=== PATIENT | male | born 1955 | race Caucasian/White ===

== ENCOUNTER → 2023-04-07 07:40 | Outpatient (CLI) | payer MEDICARE, SELFPAY ==
[2023-04-07 08:32] LABS: Influenza A - CEPHEID Flu A NEGATIVE (NEGATIVE); Influenza B - CEPHEID Flu B NEGATIVE (NEGATIVE); Respiratory Syncytial Virus Negative (Negative)
[2023-04-07 09:42] LABS: COVID-19 CEPHEID 4-PLEX PCR Negative (Negative)
== END ==
PROVIDERS: PCP Family Medicine; Visit Provider Nurse Practitioner Family
DX: J06.9 Acute upper respiratory infection, unspecified (principal)
CPT/HCPCS: 0241U

== ENCOUNTER → 2023-06-03 12:28 | Outpatient (CLI) | payer MEDICARE, SELFPAY ==
[2023-06-03 12:52] LABS: Add Manual Diff / Slide Review NO; Basophils Absolute Auto 0 /uL (0-100); Basophils Percent Auto 0.3 % (0-2); Eosinophils Absolute Auto 200 /uL (0-450); Eosinophils Percent Auto 1.9 % (2-4); Hematocrit 40.6 % (41-53); Hemoglobin 13.7 g/dL (13.5-17.5); Lymphocytes Absolute Auto 1300 /uL (1100-4500); Lymphocytes Percent Auto 14.8 % (25-40); Mean Corpuscular HGB Conc 33.8 % (30-36); Mean Corpuscular Volume 88.9 fL (80-100); Monocytes Absolute Auto 600 /uL (0-900); Monocytes Percent Auto 7.2 % (3-14); Neutrophils Absolute Auto 6800 /uL (1500-7000); Neutrophils Percent Auto 75.8 % (50-75); Platelet Count 337 X10^3/uL (150-400); Red Blood Cell Count 4.56 X10^6/uL (4.5-5.9); Red Cell Distribution Width 14.3 % (11.6-14.8); White Blood Cell Count 8.9 X10^3/uL (4.5-11.0)
[2023-06-03 17:42] LABS: Alanine Aminotransferase 18 IU/L (<50); Albumin 3.8 g/dL (3.5-5.0); Albumin Globulin Ratio 1.4 (1.0-2.8); Alkaline Phosphatase 86 U/L (38-126); Aspartate Aminotransferase 17 IU/L (17-59); BUN Creatinine Ratio 11.5 (6-22); Bilirubin Total 0.8 mg/dL (0.2-1.3); Blood Urea Nitrogen 10 mg/dL (9-20); Calcium 9.8 mg/dL (8.4-10.2); Carbon Dioxide 24 mmol/L (22-32); Chloride 107 mmol/L (98-107); Cholesterol 115 mg/dL (140-199); Estimated Glomerular Filt Rate > 60 mL/min (>60); Globulin 2.8 g/dL (1.7-4.1); Glucose 125 mg/dL (80-110); HDL Cholesterol 44 mg/dL (40-60); HEMOLYSIS < 15 (0-50); LDL Cholesterol Calculated 58 mg/dL (<100); Potassium 3.6 mmol/L (3.4-5.1); Sodium 140 mmol/L (137-145); Total Protein 6.6 g/dL (6.3-8.2); Triglycerides 63 mg/dL (35-150)
== END ==
PROVIDERS: PCP Family Medicine; Referring Provider Family Medicine; Visit Provider Family Medicine
DX: E78.5 Hyperlipidemia, unspecified (principal); I10 Essential (primary) hypertension; I48.0 Paroxysmal atrial fibrillation
CPT/HCPCS: 36415; 80053; 80061; 85025

== ENCOUNTER → 2024-02-01 13:46 | Outpatient (CLI) | payer MEDICARE, SELFPAY ==
[2024-02-01 14:25] LABS: Add Manual Diff / Slide Review NO; Basophils Absolute Auto 100 /uL (0-100); Eosinophils Absolute Auto 200 /uL (0-450); Eosinophils Percent Auto 2.1 % (2-4); Hematocrit 42.1 % (41-53); Hemoglobin 14.3 g/dL (13.5-17.5); Lymphocytes Absolute Auto 1200 /uL (1100-4500); Lymphocytes Percent Auto 12.5 % (25-40); Mean Corpuscular HGB Conc 33.9 % (30-36); Mean Corpuscular Hemoglobin 30.8 PG (26-34); Monocytes Absolute Auto 1100 /uL (0-900); Neutrophils Absolute Auto 7200 /uL (1500-7000); Neutrophils Percent Auto 73.4 % (50-75); Platelet Count 272 X10^3/uL (150-400); Red Blood Cell Count 4.63 X10^6/uL (4.5-5.9); White Blood Cell Count 9.8 X10^3/uL (4.5-11.0)
[2024-02-01 14:50] LABS: Alanine Aminotransferase 20 IU/L (<50); Albumin 4.2 g/dL (3.5-5.0); Albumin Globulin Ratio 1.6 (1.0-2.8); Alkaline Phosphatase 90 U/L (38-126); Aspartate Aminotransferase 22 IU/L (17-59); BUN Creatinine Ratio 15.3 (6-22); Bilirubin Total 0.9 mg/dL (0.2-1.3); Blood Urea Nitrogen 15 mg/dL (9-20); Calcium 9.6 mg/dL (8.4-10.2); Carbon Dioxide 29 mmol/L (22-32); Chloride 107 mmol/L (98-107); Estimated Glomerular Filt Rate > 60 mL/min (>60); Globulin 2.7 g/dL (1.7-4.1); Glucose 83 mg/dL (80-110); HEMOLYSIS < 15 (0-50); Potassium 3.9 mmol/L (3.4-5.1); Sodium 140 mmol/L (137-145); Total Protein 6.9 g/dL (6.3-8.2)
[2024-02-01 14:56] LABS: NT-proBNP (BNP-Adult 18+) 671 pg/mL (<125)
[2024-02-01 15:17] LABS: TSH w/ Reflex to FT4 1.47 uIU/mL (0.47-4.68)
[2024-02-01 15:37] LABS: Vitamin B12 219 pg/mL (239-931)
== END ==
PROVIDERS: PCP Family Medicine; Referring Provider Family Medicine; Visit Provider Family Medicine
DX: I48.91 Unspecified atrial fibrillation (principal); R60.0 Localized edema; R41.3 Other amnesia
CPT/HCPCS: 36415; 80053; 82607; 83880; 84443; 85025; 86803

== ENCOUNTER → 2024-03-06 06:55 | Outpatient (CLI) | payer MEDICARE, SELFPAY ==
--- NOTE | 2024-03-06 06:56 | DI.ECHO.S_ITS ---
[place] +---------+ [facility] : : [address] : : [place] : : [id number] : : Phone: [phone] Echocardiogram Report + + :Name: JAKE AZEVEDO Study Date: 03/06/2024 Height: 69 in : :[facility] ReadingLocation: Weight: 230 lb : : Gender: Male BSA: 2.2 m2 : :: 1955 Age: 68 yrs BP: 165/105 mmHg: :Reason For Study: ATRIAL FIBRILLATION : :Ordering Physician: KAMLA, : :GUCCI Performed By: Krystin Sun : :Referring: GUCCI CASON : + + Interpretation Summary 1) Normal left ventricular thickness and size with moderately to severely reduced systolic function (EF 30-35%). 2) Upper normal right ventricular size with mildly reduced function. 3) There is mild mitral regurgitation. 4) The aortic root is moderately dilated at 4.6cm. 5) Hypertension present during the study (BP 165/105mmHg). 6) No prior Echo available for comparison. Recommend cardiology consult. Procedure: A two-dimensional transthoracic echocardiogram with color flow and Doppler was performed. The study quality was technically adequate. There is no prior echocardiogram noted for this patient. The patient had occasional PVCs during the exam. The patient was in atrial fibrillation with heart rates between 73-92 bpm during the exam. Left Ventricle: The left ventricle is normal in size. Left ventricular wall thickness is mildly increased. The ejection fraction is estimated to be 30- 35%. Diastolic function could not be accurately assessed due to atrial fibrillation. Right Ventricle: The right ventricle is at the upper limits of normal in size. Right ventricular systolic function is mildly reduced. Atria: The left atrium is moderately dilated. Right atrial size is normal. There is no Doppler evidence for an interatrial shunt. Mitral Valve: The mitral valve is normal in structure and function. There is mild mitral regurgitation. Aortic Valve: The aortic valve is trileaflet. The aortic valve opens well. The aortic valve is slightly calcified. There is no aortic valve stenosis. No aortic regurgitation is present. Tricuspid Valve: The tricuspid valve is normal in structure and function. Pulmonary artery pressures cannot be estimated because of the lack of a measurable TR jet velocity. Pulmonic Valve: The pulmonic valve leaflets are thin and pliable; valve motion is normal. There is trace pulmonic regurgitation. Great Vessels: The aortic root is moderately dilated. The dimensions of the ascending aorta are normal. The IVC is of normal diameter and collapses greater than 50% with a sniff. This suggests a low right atrial pressure of 3 mm Hg. Pericardium/ Pleura There is no pericardial effusion. There is no pleural effusion. MMode/2D Measurements & Calculations LVIDd: 5.7 cm LVOT diam: 2.1 cm LVIDs: 4.8 cm Ao root diam: 4.6 cm FS: 16.8 % asc Aorta Diam: 3.6 cm EPSS: 1.5 cm Ao Arch Diam (Prox Trans): 3.7 cm IVSd: 1.0 cm LVPWd: 1.2 cm LV kowalski. diameter/BSA (cm/m^2): 2.6 LV sys. diameter/BSA (cm/m^2): 2.2 LA A2 area: 29.2 cm2 RA long axis: 6.7 cm LA A4 area: 29.8 cm2 RA area: 18.7 cm2 LA length (vol): 6.8 cm RA vol: 44.3 ml LA vol: 108.3 ml RA : 20.2 ml/m2 LA vol index: 49.4 ml/m2 IVC diam: 1.4 cm RVD1 (basal): 4.1 cm RVD2 (mid): 3.1 cm TAPSE: 1.6 cm Doppler Measurements & Calculations Ao V2 max: 102.9 cm/sec LVOT Max Shaw: 80.3 cm/sec Ao V2 mean: 76.7 cm/sec LV V1 max P.6 mmHg Ao max P.2 mmHg LV V1 VTI: 15.4 cm Ao mean P.5 mmHg STEFANIA(I,D): 2.7 cm2 Ao V2 VTI: 20.3 cm STEFANIA(V,D): 2.8 cm2 sev ratio: 0.76 STEFANIA indexed to BSA (cm^2/m^2): 1.2 MV E max shaw: 101.9 cm/sec PA V2 max: 79.8 cm/sec MV A max shaw: 0.79 cm/sec PA V2 mean: 53.5 cm/sec MV E/A: 129.0 PA mean P.3 mmHg Med Peak E' Shaw: 8.3 cm/sec E/E' med: 12.3 Lat Peak E' Shaw: 11.3 cm/sec E/E' lat: 9.0 E/e' average: 10.7 MV dec time: 0.19 sec SV(LVOT): 54.2 ml Reading Physician:09:54 AM
== END ==
LOC: ECHO 06:56
PROVIDERS: PCP Family Medicine; Referring Provider Family Medicine; Visit Provider Family Medicine
DX: I34.0 Nonrheumatic mitral (valve) insufficiency (principal); I77.810 Thoracic aortic ectasia; I48.91 Unspecified atrial fibrillation; R60.0 Localized edema
CPT/HCPCS: 93306

== ENCOUNTER 2024-04-24 11:53 | Day surgery (SDC) | payer MEDICARE, SELFPAY ==
[2024-04-24 12:15] VITALS: BP 172/87; PULSE 83; RESP 16; TEMP 36.7; O2SAT 98
[2024-04-24] MEDS: LACTATED RINGERS 1,000 ML 42 ML IV (12:23)
--- NOTE | 2024-04-24 12:33 | P.HP_ITS ---
History of Present Illness History of Present Illness Date Patient Seen: 04/24/24 Time Patient Seen: 12:33 Chief complaint: Colonoscopy Narrative: 68-year-old man here for screening colonoscopy. Last colonoscopy over 5 years ago normal. No family history of colon cancer. No abdominal concerns today. [facility] Medical History (Updated 06/07/23 @ 13:39 by Karime Silva DO) Encounter for initial annual wellness visit (AWV) in Medicare patient Vision disorder Tinnitus Hearing loss Atrial fibrillation (~2019) Prostate cancer (~2013) Sleep apnea Depression Hyperlipemia Benign essential HTN Paroxysmal atrial fibrillation Family History (Updated 05/10/23 @ 20:42 by Bee Alvarado) Mother Pneumonia Cancer Social History Smoking Status: Never smoker alcohol intake: current Meds Home Medications and Allergies Home Medications Medication Instructions Recorded Confirmed Type apixaban 5 mg tablet (Eliquis) 5 mg PO BID #180 tabs 06/07/23 04/24/24 Rx citalopram 20 mg tablet (Celexa) 20 mg PO DAILY #90 tabs 06/07/23 04/24/24 Rx rosuvastatin 10 mg tablet 10 mg PO DAILY #90 tabs 06/07/23 04/24/24 Rx valsartan 320 mg tablet 320 mg PO DAILY #30 tabs 07/13/23 04/24/24 Rx atropine 1 % eye drops 1 drp EYE-BOTH Q OTHER DAY 02/01/24 04/24/24 History diltiazem HCl 180 mg 180 mg PO DAILY #90 tabs 02/01/24 04/24/24 Rx tablet,extended release 24 hr ketorolac 0.4 % eye drops 1 drp EYE-BOTH Q4H 02/01/24 04/24/24 History prednisolone acetate 1 % eye 1 drp EYE-BOTH Q2H 02/01/24 04/24/24 History drops,suspension cyanocobalamin (vitamin B-12) 1,000 mcg PO DAILY #90 tabs 02/02/24 04/24/24 Rx 1,000 mcg tablet folic acid 1 mg tablet 1 mg PO DAILY #90 tabs 02/02/24 04/24/24 Rx Allergies Allergy/AdvReac Type Severity Reaction Status Date / Time No Known Drug Allergies Allergy Verified 04/24/24 12:08 Exam Vital Signs (past 8 hours): - 04/24/24 12:15 Temperature 98.0 F Pulse Rate 83 Respiratory Rate 16 Blood Pressure 172/87 H Pulse Oximetry 98 Oxygen Delivery Method Room Air Oxygen Delivery Method Room Air Narrative Exam Narrative: General adult man alert oriented no acute distress Chest nonlabored respiration Extremities warm well perfused Assessment & Plan Assessment & Plan narrative: The patient requires colorectal screening and colonoscopy is recommended. Technical details were discussed. Risks, benefits, alternatives explained. Risks including but not limited to myocardial infarction, aspiration, bleeding, pain, missed lesion, incomplete examination, need for further radiographic studies, intestinal injury, and need for major abdominal surgery were discussed. All questions were answered to their satisfaction, and they are in agreement with this plan. Time-Based Coding :: [TOTAL MINUTES] spent with patient and on the chart (including review of chart, obtaining history, exam, reviewing outside data, placing orders, documenting exam and treatment plan, and counseling patient) on [DATE].
[2024-04-24 13:00] VITALS: BP 140/78; PULSE 70; RESP 21; TEMP 37.2; O2SAT 97
--- NOTE | 2024-04-24 13:05 | P.OP.COLON_ITS ---
Operative Date/Time/Diagnoses Date of procedure: 04/24/24 Time of procedure: 13:05 Pre-op diagnosis: Colorectal screening Procedure & Clinicians Study performed: Screening colonoscopy Same procedure as scheduled: Yes Indications: Colorectal screening Surgeon: Cody Buck Procedure Notes Procedure in detail: The history and physical was performed/updated and the patient is ASA class is 2. The procedure was discussed in detail with the patient. Potential risks co mplications including infection, bleeding, missed diagnosis, perforation, need for surgery, and were explained. Their questions were answered and informed consent was obtained. Patient was brought to the procedure room and placed standard monitoring equipment. The patient's vital signs were monitored continuously throughout the entire procedure. Prior to starting time-out was performed. The patient was placed in the left lateral recumbent position. Procedural sedation was administered by anesthesia. Examination began with a thorough inspection of the perianal area there was no evidence of fissures, fistulae, external hemorrhoids or cutaneous malignancy. The colonoscopy scope was then placed into the anal canal and was advanced to the cecum, which was identified by the ileocecal valve, the appendiceal orifice and the confluence of the taenia. The scope was then slowly withdrawn examining colon thoroughly in all directions, irrigating it of any residual stool. The scope was retroflexed within the rectum The patient tolerated the procedure well. They will be discharged once criteria are met. The prep was of good/excellent quality. The withdrawl time was 7 minutes. FINDINGS * Diverticulosis of descending colon * Colonic mucosa without mass or polyps. Specimen(s): none sent Impression: Diverticulosis Post-procedure Recommendations: High fiber diet Plan for aftercare: No need further colonoscopy unless symptomatic Disposition: same day surgery
[2024-04-24 13:06] VITALS: BP 145/79; PULSE 88; RESP 16; TEMP 37.2; O2SAT 95
[2024-04-24 13:19] VITALS: BP 132/76; PULSE 71; RESP 18; TEMP 37; O2SAT 98
== END 2024-04-24 13:24 | disposition home or self-care (01) ==
PROVIDERS: PCP Family Medicine; Referring Provider Surgery; Visit Provider Surgery
PROC: 0DJD8ZZ Inspection of Lower Intestinal Tract, Via Natural or Artificial Opening Endoscopic (ICD-10-PCS; CPT 45378; principal; 2024-04-24 12:45)
DX: Z12.11 Encounter for screening for malignant neoplasm of colon (principal); K57.30 Diverticulosis of large intestine without perforation or abscess without bleeding
CPT/HCPCS: G0121; J2704

== ENCOUNTER → 2024-07-09 10:23 | Outpatient (CLI) | payer MEDICARE, SELFPAY ==
--- NOTE | 2024-07-09 10:24 | DI.CT.S_ITS ---
PROCEDURE: CT CHEST WO CON INDICATIONS: ANEURYSM TECHNIQUE: Noncontrast 5 mm thick sections acquired from the pulmonary apices to the posterior costophrenic angles. 1 mm lung window, 5 mm thick coronal and sagittal and 7 mm axial MIP reformats were then acquired. For radiation dose reduction, the following was used: automated exposure control, adjustment of mA and/or kV according to patient size. COMPARISON: None. FINDINGS: Image quality: Diagnostic. Lower Neck: No enlarged lymph nodes. Thyroid: No thyroid nodules which require sonographic follow up, per consensus guidelines. Axillae: No enlarged lymph nodes. Chest Wall: Unremarkable. Bones: Multilevel degenerative changes of the spine. Lungs and Pleura: No pneumothorax or pleural effusions. Linear atelectasis versus scarring within the left lower lobe and lingula. Perifissural triangular nodules are noted on the left, likely intrapulmonary lymph nodes. Heart: Heart size is prominent. Mild coronary artery calcifications. No pericardial effusion. Thoracic Vessels: The aorta and pulmonary arteries demonstrate normal size. The ascending thoracic aorta measures 3.7 cm. Atherosclerotic vascular calcifications are present. Mediastinum and Malina: No enlarged lymph nodes. Esophagus: No wall thickening. No hiatal hernia. Upper Abdomen: Visualized upper abdomen solid organs and bowel loops appear normal. IMPRESSION: The ascending thoracic aorta is normal in caliber measuring 3.7 cm. Dictated by: Aron Ordoñez M.D. on 07/09/2024 at 15:21 Approved by: Aron Ordoñez M.D. on 07/09/2024 at 15:26
--- NOTE | 2024-07-09 21:46 | DI.NM.S_ITS ---
DATE OF SERVICE: 07/09/2024 EXERCISE TREADMILL STRESS TEST PROCEDURE: Exercise treadmill stress test without imaging. ORDERING PROVIDER: Sudarshan Chavez MD INDICATIONS: The patient is a 69-year-old hypertensive male with paroxysmal atrial fibrillation and cardiomyopathy. FINDINGS: 1. The patient was able to exercise for 5 minutes 34 seconds on a standard William protocol suggesting moderately reduced exercise capacity with an FEDE of +19%, achieving 7.0 METS. 2. He had an accelerated heart rate response to exercise with his resting ECG showing atrial fibrillation at 109 BPM, increasing to 146 BPM after 1 minute of exercise and achieving a maximum heart rate of 195 BPM at peak exercise (129% of his predicted maximum heart rate). He had a moderate hypertensive blood pressure response with a resting blood pressure of 160/100, increasing to a maximum of 240/118 at peak exercise. 3. He had no chest discomfort or anginal symptoms except for moderate exertional dyspnea and weakness. 4. His resting ECG shows atrial fibrillation with fairly normal ST segments. With exercise, there is significant motion artifact but his immediate recovery ECG shows no significant ST-segment shifts and only rare, isolated PVCs, although he remained in atrial fibrillation throughout the study. IMPRESSION: 1. Normal exercise treadmill stress test for ischemia. 2. Moderately reduced exercise capacity, likely due to an accelerated heart rate response to exercise with a resting heart rate of 109 BPM increasing to a maximum of 195 BPM in persistent atrial fibrillation. He also had a hypertensive blood pressure response but no anginal symptoms. He had rare PVCs, but no complex ectopy. Ruslan Arreguin - RS/fn/AY doc#: [id number]/job#: [id number] dd: 07/09/2024 17:21:00 dt: 07/09/2024 21:20:00 DICTATING MD/COPIES TO: Riccardo Camacho MD; Sudarshan Chavez MD COPIES MNE: MARIA G;
== END ==
PROVIDERS: PCP Family Medicine; Referring Provider Internal Medicine; Visit Provider Internal Medicine
DX: I50.22 Chronic systolic (congestive) heart failure (principal); I11.0 Hypertensive heart disease with heart failure; I72.9 Aneurysm of unspecified site; I25.10 Atherosclerotic heart disease of native coronary artery without angina pectoris; I48.0 Paroxysmal atrial fibrillation; I42.9 Cardiomyopathy, unspecified
CPT/HCPCS: 71250; 93017

== ENCOUNTER → 2024-07-24 13:01 | Outpatient (CLI) | payer MEDICARE, SELFPAY ==
[2024-07-24 13:36] LABS: Add Manual Diff / Slide Review NO; Basophils Absolute Auto 100 /uL (0-100); Basophils Percent Auto 1.4 % (0-2); Eosinophils Absolute Auto 200 /uL (0-450); Eosinophils Percent Auto 1.9 % (2-4); Hematocrit 47.6 % (41-53); Hemoglobin 15.9 g/dL (13.5-17.5); Lymphocytes Absolute Auto 1400 /uL (1100-4500); Lymphocytes Percent Auto 15.6 % (25-40); Mean Corpuscular HGB Conc 33.5 % (30-36); Mean Corpuscular Hemoglobin 31.1 PG (26-34); Mean Corpuscular Volume 93.1 fL (80-100); Monocytes Absolute Auto 800 /uL (0-900); Monocytes Percent Auto 8.8 % (3-14); Neutrophils Absolute Auto 6300 /uL (1500-7000); Neutrophils Percent Auto 72.3 % (50-75); Platelet Count 275 X10^3/uL (150-400); Red Blood Cell Count 5.11 X10^6/uL (4.5-5.9); Red Cell Distribution Width 14.3 % (11.6-14.8); White Blood Cell Count 8.7 X10^3/uL (4.5-11.0)
[2024-07-24 14:07] LABS: Alanine Aminotransferase 23 IU/L (<50); Albumin 4.3 g/dL (3.5-5.0); Albumin Globulin Ratio 1.4 (1.0-2.8); Alkaline Phosphatase 72 U/L (38-126); Aspartate Aminotransferase 26 IU/L (17-59); BUN Creatinine Ratio 12.6 (6-22); Bilirubin Total 1.2 mg/dL (0.2-1.3); Blood Urea Nitrogen 14 mg/dL (9-20); Calcium 9.6 mg/dL (8.4-10.2); Carbon Dioxide 27 mmol/L (22-32); Chloride 106 mmol/L (98-107); Cholesterol 126 mg/dL (140-199); Estimated Glomerular Filt Rate > 60 mL/min (>60); Glucose 87 mg/dL (80-110); HDL Cholesterol 47 mg/dL (40-60); HEMOLYSIS < 15 (0-50); LDL Cholesterol Calculated 59 mg/dL (<100); Magnesium 2.1 mg/dL (1.6-2.3); Potassium 3.7 mmol/L (3.4-5.1); Sodium 141 mmol/L (137-145); Total Protein 7.3 g/dL (6.3-8.2); Triglycerides 101 mg/dL (35-150)
[2024-07-24 14:33] LABS: TSH w/ Reflex to FT4 1.14 uIU/mL (0.47-4.68)
[2024-07-24 14:34] LABS: Prostate Specific Antigen 0.316 ng/mL (0.10-4.00)
== END ==
PROVIDERS: PCP Family Medicine; Referring Provider Physician Assistant; Visit Provider Physician Assistant
DX: I11.0 Hypertensive heart disease with heart failure (principal); I48.0 Paroxysmal atrial fibrillation; I50.22 Chronic systolic (congestive) heart failure; Z85.46 Personal history of malignant neoplasm of prostate
CPT/HCPCS: 36415; 80053; 80061; 83735; 84153; 84443; 85025

== ENCOUNTER → 2024-08-29 07:00 | Outpatient (CLI) | payer MEDICARE, SELFPAY ==
--- NOTE | 2024-08-29 07:00 | DI.ECHO.S_ITS ---
[place] +---------+ Hospital : : [address] : : [place] : : [id number] : : Phone: [phone] Echocardiogram Report + + :Name: JAKE AZEVEDO Study Date: 08/29/2024 Height: 69 in : :[facility] ReadingLocation: Weight: 230 lb : : Gender: Male BSA: 2.2 m2 : :: 1955 Age: 69 yrs BP: 146/83 mmHg: :Reason For Study: CHRONIC SYSTOLIC HEART FAILURE : :Ordering Physician: MARLENI, : :KAI Knapp Performed By: Krystin Sun : :Referring: KAI YEPEZ P.A-C : + + Interpretation Summary 1. The left ventricular contractility is mildly compromised. Estimate ejection fraction is 40 to 45% with mild global hypokinesis. No LVH. Unable to comment on diastolic function. 2. The right ventricle contractility is mildly compromised. 3. Mild biatrial enlargement. Mild right ventricular enlargement. Left ventricular cavity is of normal size. 4. No significant valvular abnormalities. 5. No obvious intracardiac shunts. 6. No obvious intracardiac masses nor thrombi. 7. No hemodynamically significant pericardial effusion. 8. Low right-sided filling pressures. 9. Mildly dilated aortic root without obvious dissection. Conclusion: Mildly compromised biventricular systolic function with no significant valvular abnormalities. When compared with previous echocardiogram, there appears to be an improvement in the left ventricular systolic function. Procedure: A two-dimensional transthoracic echocardiogram with color flow and Doppler was performed. The study quality was technically adequate. Comparison is made with the echocardiogram of 03/06/2024. The patient was in atrial fibrillation with heart rates between 55-75 bpm during the exam. Left Ventricle: The left ventricle is normal in size and wall thickness. The ejection fraction is estimated to be 40-45%. Diastolic function could not be accurately assessed due to atrial fibrillation. Right Ventricle: The right ventricle is mildly dilated. Right ventricular systolic function is mildly reduced. Atria: The left atrium is mildly dilated. The right atrium is mildly dilated. There is no Doppler evidence for an interatrial shunt. Mitral Valve: The mitral valve leaflets appear borderline thickened, but open well. The mitral valve leaflets appear to open well. There is no mitral valve stenosis. There is no mitral regurgitation noted. Aortic Valve: The aortic valve is trileaflet. The aortic valve opens well. The aortic valve is slightly calcified. There is no aortic valve stenosis. There is trace aortic regurgitation. Tricuspid Valve: The tricuspid valve leaflets are thin and pliable. No tricuspid regurgitation. Pulmonary artery pressures cannot be estimated because of the lack of a measurable TR jet velocity. Pulmonic Valve: The pulmonic valve leaflets are thin and pliable; valve motion is normal. There is a trace or physiologic amount of pulmonic regurgitation. Great Vessels: The aortic root is mildly dilated. The dimensions of the ascending aorta are normal. The IVC is of normal diameter and collapses greater than 50% with a sniff. This suggests a low right atrial pressure of 3 mm Hg. Pericardium/ Pleura There is no pericardial effusion. There is no pleural effusion. MMode/2D Measurements & Calculations LVIDd: 5.5 cm LVOT diam: 2.5 cm LVIDs: 4.0 cm Ao root diam: 4.4 cm FS: 28.2 % Aortic Jxn: 3.3 cm EPSS: 1.5 cm asc Aorta Diam: 3.5 cm IVSd: 0.86 cm LVPWd: 0.99 cm LV kowalski. diameter/BSA (cm/m^2): 2.5 LV sys. diameter/BSA (cm/m^2): 1.8 LA A2 area: 25.3 cm2 RA long axis: 6.5 cm LA A4 area: 27.2 cm2 RA area: 25.5 cm2 LA length (vol): 6.7 cm RA vol: 85.5 ml LA vol: 86.8 ml RA : 39.0 ml/m2 LA vol index: 39.6 ml/m2 IVC diam: 0.76 cm RVD1 (basal): 4.5 cm RVD2 (mid): 3.5 cm TAPSE: 1.6 cm Doppler Measurements & Calculations Ao V2 max: 100.1 cm/sec LVOT Max Shaw: 65.9 cm/sec Ao V2 mean: 77.8 cm/sec LV V1 max P.7 mmHg Ao max P.0 mmHg LV V1 VTI: 12.3 cm Ao mean P.5 mmHg STEFANIA(I,D): 2.8 cm2 Ao V2 VTI: 20.6 cm STEFANIA(V,D): 3.1 cm2 sev ratio: 0.59 STEFANIA indexed to BSA (cm^2/m^2): 1.3 MV E max shaw: 87.9 cm/sec PA V2 max: 88.7 cm/sec MV A max shaw: 2.5 cm/sec PA V2 mean: 63.5 cm/sec MV E/A: 35.7 PA mean P.8 mmHg Med Peak E' Shaw: 8.1 cm/sec PA pr(Accel): 34.5 mmHg E/E' med: 10.9 Lat Peak E' Shaw: 10.9 cm/sec E/E' lat: 8.1 E/e' average: 9.5 MV dec time: 0.20 sec MVA(VTI): 2.3 cm2 MV V2 mean: 65.6 cm/sec SV(LVOT): 58.4 ml MV mean P.0 mmHg MV V2 VTI: 25.8 cm Reading Physician:
== END ==
LOC: ECHO 07:00
PROVIDERS: PCP Family Medicine; Referring Provider Physician Assistant; Visit Provider Physician Assistant
DX: I50.22 Chronic systolic (congestive) heart failure (principal); I77.810 Thoracic aortic ectasia
CPT/HCPCS: 93306

== ENCOUNTER → 2025-04-06 09:18 | Outpatient (CLI) | payer MEDICARE, SELFPAY ==
--- NOTE | 2025-04-06 09:19 | DI.MRI.S_ITS ---
PROCEDURE: MR LUMBAR SPINE WO CON INDICATIONS: LBP with Lt radiculopathy TECHNIQUE: Noncontrast sagittal T1 spin echo and T2 fast echo, sagittal STIR, and T2 fast spin echo through the lumbar spine. In cases with scoliosis, additional coronal T2 fast spin echo may be performed. COMPARISON: None. FINDINGS: Image quality: Excellent. Alignment and Curvature: There is mild to moderate dextroscoliosis. No significant spondylolisthesis. Bone Marrow: Marrow is of normal overall signal. No acute vertebral body compression fractures. Multilevel Modic type 2 reactive endplate changes. Spinal Cord: Conus medullaris terminates at the T12 level. Visualized cord demonstrates normal signal and size. Paraspinous Soft Tissues: No paravertebral masses. T12-L1: There is a mild disc bulge without spinal stenosis. L1-L2: There is mild disc bulge as well as bilateral facet arthropathy. No significant spinal stenosis. L2-L3: There is a disc bulge as well as bilateral facet arthropathy, with facet joint effusion on the right. There is also some ligamentum flavum thickening. There is mild to moderate right lateral recess stenosis and mild right foraminal stenosis. L3-L4: There is disc bulge as well as bilateral facet arthropathy and ligamentum flavum thickening. There is superimposed mild central spinal stenosis as well as moderate left lateral recess and mild left foraminal stenosis. L4-L5: There is a disc bulge as well as bilateral facet arthropathy, with facet joint effusion. There spinal stenosis as well as mild to moderate bilateral foraminal stenosis and moderate right lateral recess stenosis. L5-S1: Mild disc bulge as well as bilateral facet arthropathy. No significant spinal stenosis seen. IMPRESSION: 1. Dextroscoliosis and multilevel degenerative change. There is mild central spinal stenosis at L3-L4 as well as multilevel bilateral lateral stenosis as above. 2. No definite disc extrusion or acute focal osseous lesions. Dictated by: Ronnie Maya M.D. on 04/06/2025 at 20:46 Approved by: Ronnie Maya M.D. on 04/06/2025 at 20:55
== END ==
LOC: MRI 09:19
PROVIDERS: PCP Family Medicine; Referring Provider Family Medicine; Visit Provider Family Medicine
DX: M47.26 Other spondylosis with radiculopathy, lumbar region (principal); M47.27 Other spondylosis with radiculopathy, lumbosacral region; M41.9 Scoliosis, unspecified; M48.061 Spinal stenosis, lumbar region without neurogenic claudication
CPT/HCPCS: 72148; A9579

== ENCOUNTER → 2025-06-06 14:12 | Outpatient (CLI) | payer MEDICARE, SELFPAY ==
--- NOTE | 2025-06-06 14:14 | DI.RAD.S_ITS ---
PROCEDURE: XR LUMBAR SPINE MIN 4V INDICATIONS: BACK PAIN TECHNIQUE: 5 views of the lumbar spine were acquired, including bilateral oblique views. COMPARISON: None. FINDINGS: Bones: 5 nonrib-bearing vertebrae are present. There is normal bony alignment. No vertebral body compression fractures. No suspicious bony lesions. Convex left thoracolumbar scoliosis. Disc space narrowing and hypertrophic facet joints noted particularly in the lower spine. Advanced left hip arthritic changes Soft tissues: Overlying bowel gas pattern is normal. No suspicious soft tissue calcifications. Oblique images: No pars defects. IMPRESSION: No acute fracture or traumatic malalignment. Degenerative disc disease and arthropathy Advanced left hip arthritic changes Approved by: Marv Hassan M.D. on 06/06/2025 at 15:53
== END ==
LOC: RAD 14:13
PROVIDERS: PCP Family Medicine; Referring Provider Family Medicine; Visit Provider Physical Medicine & Rehabilitation
DX: M47.816 Spondylosis without myelopathy or radiculopathy, lumbar region (principal); M51.369 Other intervertebral disc degeneration, lumbar region without mention of lumbar back pain or lower extremity pain; M54.9 Dorsalgia, unspecified
CPT/HCPCS: 72110

== ENCOUNTER → 2025-06-07 09:06 | Outpatient (CLI) | payer MEDICARE, SELFPAY ==
--- NOTE | 2025-06-07 09:08 | DI.RAD.S_ITS ---
PROCEDURE: XR HIP W PEL IF DONE LT 2V INDICATIONS: left hip pain TECHNIQUE: Two views of the hip were acquired. COMPARISON: None. FINDINGS: Bones: There are no osseous abnormalities. SI and hip joints: Severe left hip degeneration noted. A 3 cm subchondral cyst is present the superior femoral head Present the superior left femoral head. This is likely degenerative, but atypical avascular necrosis is not excluded. Right hip and both SI joints are normal. Mild L5-S1 degenerative disc and facet disease Soft tissues: No soft tissue swelling, calcification or mass. IMPRESSION: Severe left hip degeneration Dictated by: Eamon Golden M.D. on 06/07/2025 at 12:26 Approved by: Eamon Golden M.D. on 06/07/2025 at 12:27
== END ==
PROVIDERS: PCP Family Medicine; Referring Provider Physical Medicine & Rehabilitation; Visit Provider Physical Medicine & Rehabilitation
DX: M16.12 Unilateral primary osteoarthritis, left hip (principal); M25.552 Pain in left hip
CPT/HCPCS: 73502

== ENCOUNTER → 2025-06-25 08:15 | Outpatient (CLI) | payer MEDICARE, SELFPAY ==
--- NOTE | 2025-06-25 08:16 | DI.MRI.S_ITS ---
PROCEDURE: MR HIP LT WO CON INDICATIONS: left hip pain, abnormal finding on Xray TECHNIQUE: Noncontrast coronal T1 spin echo and STIR through the bony pelvis. Coronal and axial T2 fast spin echo with fat saturation, sagittal T1 spin echo, and oblique axial T2 fast spin echo with fat saturation through the hip. COMPARISON: [facility], CR, XR HIP W PEL LT 2V, 06/07/2025, 9:17. FINDINGS: Articular surface collapse of left femoral head involving greater than 80 percent of the weight-bearing surface with serpiginous subchondral line. Extensive marrow edema extending to the femoral neck intertrochanteric region and proximal diaphysis. Extensive marrow edema in the acetabulum. Extensive periarticular soft tissue edema with small complex effusion. Diffuse labral degeneration. Broad areas of full-thickness cartilage loss along the acetabulum Muscles and tendons are intact. No bursitis. Intramuscular lipoma 9.7 x 4.7 x 4.2 centimeter in the tensor fascia norm on the left. Large fat containing right inguinal hernia and small fat containing left inguinal hernia. Diverticulosis without inflammation. Degenerative changes in the lower lumbar spine. IMPRESSION: Acute on chronic left hip osteoarthritis with bone marrow edema, effusion and soft tissue inflammation. Articular surface collapse of the superior femoral head which is likely acute and secondary to either pre-existing avascular necrosis of the femoral head, osteoarthritis or subchondral fracture. Left tensor fascia norm intramuscular hematoma. Bilateral fat containing inguinal hernias, right greater than left. Dictated by: William Chiu M.D. on 06/26/2025 at 8:29 Approved by: William Chiu M.D. on 06/26/2025 at 8:51
== END ==
LOC: MRI 08:15
PROVIDERS: PCP Family Medicine; Referring Provider Physical Medicine & Rehabilitation; Visit Provider Physical Medicine & Rehabilitation
DX: M16.12 Unilateral primary osteoarthritis, left hip (principal); M25.552 Pain in left hip; K40.20 Bilateral inguinal hernia, without obstruction or gangrene, not specified as recurrent; R93.7 Abnormal findings on diagnostic imaging of other parts of musculoskeletal system; D17.9 Benign lipomatous neoplasm, unspecified
CPT/HCPCS: 73721

== ENCOUNTER → 2025-06-28 09:55 | Outpatient (CLI) | payer MEDICARE, SELFPAY ==
--- NOTE | 2025-06-28 10:59 | EKG_ITS ---
[facility] [address] [place] [address] Test Date: 2025-06-28 Pat Name: Ruslan Arreguin Department: Room: Gender: Male [employer] Systems Developer: : 1955 Requested By: Order Number: [id number] Reading MD: Cedric Hallman Measurements Intervals [place] Rate: 84 P: ME: QRS: -46 QRSD: 118 T: -49 QT: 438 QTc: 517 Interpretive Statements Atrial fibrillation Left axis deviation Incomplete right bundle branch block Nonspecific ST and T wave abnormality Prolonged QT Electronically Signed On 06-28-2025 18:47:30 PDT by Cedric Hallman
[2025-06-28 11:07] LABS: Hematocrit 45.5 % (41-53); Hemoglobin 15.3 g/dL (13.5-17.5); Mean Corpuscular HGB Conc 33.6 % (30-36); Mean Corpuscular Hemoglobin 30.7 PG (26-34); Mean Corpuscular Volume 91.3 fL (80-100); Platelet Count 305 X10^3/uL (150-400)
[2025-06-28 11:32] LABS: Hemoglobin A1C% w Est Avg Glu 5.9 % (4.0-6.0)
[2025-06-28 12:02] LABS: Vitamin D 25 Hydroxy (D3) 13.0 ng/mL (30.0-100.0)
[2025-06-28 12:16] LABS: Albumin 4.1 g/dL (3.5-5.0)
[2025-06-28 12:24] LABS: Alanine Aminotransferase 44 IU/L (<50); Albumin 4.1 g/dL (3.5-5.0); Albumin Globulin Ratio 1.4 (1.0-2.8); Alkaline Phosphatase 135 U/L (38-126); Blood Urea Nitrogen 11 mg/dL (9-20); Calcium 9.4 mg/dL (8.4-10.2); Carbon Dioxide 28 mmol/L (22-32); Chloride 102 mmol/L (98-107); Cholesterol 129 mg/dL (140-199); Estimated Glomerular Filt Rate > 60 mL/min (>60); Globulin 3.0 g/dL (1.7-4.1); Glucose 98 mg/dL (70-99); HDL Cholesterol 50 mg/dL (40-60); HEMOLYSIS < 15 (0-50); Potassium 3.8 mmol/L (3.4-5.1); Sodium 140 mmol/L (137-145); Total Protein 7.1 g/dL (6.3-8.2); Triglycerides 78 mg/dL (35-150)
[2025-06-28 12:28] LABS: Prealbumin 19.4 mg/dL (17.6-36.0)
[2025-06-28 13:09] LABS: Vitamin B12 458 pg/mL (239-931)
== END ==
PROVIDERS: PCP Family Medicine; Referring Provider Orthopaedic Surgery Adult Reconstructive Orthopaedic Surgery; Visit Provider Orthopaedic Surgery Adult Reconstructive Orthopaedic Surgery
DX: Z00.00 Encounter for general adult medical examination without abnormal findings (principal); I10 Essential (primary) hypertension; M16.12 Unilateral primary osteoarthritis, left hip; I50.22 Chronic systolic (congestive) heart failure; E78.49 Other hyperlipidemia; I48.19 Other persistent atrial fibrillation; R25.1 Tremor, unspecified; M87.052 Idiopathic aseptic necrosis of left femur
CPT/HCPCS: 36415; 72170; 80053; 80061; 82040; 82306; 82607; 83036; 84134; 85027; 93005; 99214